=== PATIENT | female | born 1940 ===

== ENCOUNTER → 2016-05-16 | Outpatient (CLI) | payer MEDICARE | LOC: EDSTATUS 07:54 → GT 08:00 → LAB.O 08:00 → EDSTATUS 12:56 | PROVIDERS: ATTEND Internal Medicine | DX: E87.5 Hyperkalemia (principal); J44.9 Chronic obstructive pulmonary disease, unspecified; I25.9 Chronic ischemic heart disease, unspecified; E11.9 Type 2 diabetes mellitus without complications; R06.02 Shortness of breath; E87.8 Other disorders of electrolyte and fluid balance, not elsewhere classified ==

== ENCOUNTER → 2016-05-23 | Outpatient (CLI) | payer MEDICARE | END | disposition home or self-care (01) | LOC: EDSTATUS 07:56 → LAB.O 08:17 → GT 08:17 → EDSTATUS 10:56 | PROVIDERS: ATTEND Internal Medicine | DX: Z79.01 Long term (current) use of anticoagulants (principal) ==

== ENCOUNTER → 2016-05-30 | Outpatient (CLI) | payer MEDICARE | END | disposition home or self-care (01) | LOC: LAB.O 08:31 → GT 08:31 → EDSTATUS 12:56 | PROVIDERS: ATTEND Internal Medicine | DX: Z79.01 Long term (current) use of anticoagulants (principal) ==